=== PATIENT | female | born 1945 | race Caucasian/White ===

== ENCOUNTER 2017-01-08 14:59 | Emergency (ER) | payer MEDICARE, BC ==
[2017-01-08 15:24] LABS: URINE APPEARANCE SL CLOUDY; URINE BILIRUBIN NEGATIVE (NEGATIVE); URINE BLOOD TRACE-I (NEGATIVE); URINE COLOR YELLOW; URINE GLUCOSE (UA) NEGATIVE (NEGATIVE); URINE KETONE NEGATIVE (NEGATIVE); URINE LEUKOCYTE ESTERASE LARGE (NEGATIVE); URINE NITRITE POSITIVE (NEGATIVE); URINE PROTEIN NEGATIVE (NEGATIVE); URINE UROBILINOGEN 0.2 E.U./dL (0.20 - 1.00)
[2017-01-08 15:28] LABS: URINE BACTERIA 4+; URINE RBC 0 - 2 (NONE SEEN); URINE SQUAMOUS EPITHELIAL CELL 0 - 2 /hpf; URINE WBC >50 (0-2/hpf)
--- NOTE | 2017-01-08 15:33 | Emergency Department Record ---
History of Present Illness - General Chief complaint: Female Urogenital Problem Stated complaint: UTI? Time Seen by Provider: 01/08/17 15:28 Source: Patient Mode of Arrival: Ambulatory - History of Present Illness Initial comments: The patient has dysuria and burning on urination since last night. No f,c,n,v,d , ap. Complaint: Dysuria Onset/Timin -: Days(s) Severity: Mild Severity scale (1-10): 2 Quality: Burning Consistency: Intermittent Improves with: None Worsens with: Urination Patient : No Associated Symptoms: Denies other symptoms - Related Data Home Medications Medication Instructions Recorded Confirmed Last Taken Alprazolam [Alprazolam] 0.25 mg PO BID PRN 12/29/15 01/08/17 Unknown Aspirin Chewable 81 mg PO DAILY 12/29/15 01/08/17 01/08/17 Atorvastatin Calcium [Lipitor] 40 mg PO DAILY 12/29/15 01/08/17 12/29/15 Levothyroxine Sodium [Synthroid] 88 mcg PO DAILY 12/29/15 01/08/17 01/08/17 Memantine HCl [Namenda Xr] 1 tab PO DAILY 12/29/15 01/08/17 12/29/15 Valsartan/Hydrochlorothiazide 1 tab PO DAILY 12/29/15 01/08/17 12/29/15 [Valsartan-Hctz 160-12.5 mg Tab] Ascorbic Acid [Vitamin C] 500 mg PO DAILY 01/08/17 01/08/17 Unknown Cholecalciferol (Vitamin D3) 2,000 unit PO DAILY 01/08/17 01/08/17 Unknown [Vitamin D3] Donepezil HCl [Aricept] 5 mg PO QHS 01/08/17 01/08/17 Unknown Venlafaxine HCl [Effexor] 75 mg PO DAILY 01/08/17 01/08/17 Unknown Vitamin B Complex 1 each PO DAILY 01/08/17 01/08/17 Unknown Previous Rx's Medication Instructions Recorded Ciprofloxacin HCl [Cipro] 500 mg PO Q12H #20 tablet 01/08/17 Phenazopyridine HCl [Pyridium] 200 mg PO TID #6 tab 01/08/17 Allergies Allergy/AdvReac Type Severity Reaction Status Date / Time Penicillins Allergy HIVES Verified 01/08/17 15:10 Sulfa (Sulfonamide Allergy HIVES Verified 01/08/17 15:10 Antibiotics) Travel Screening - Travel/Exposure Within Last 30 Days Have you traveled within the last 30 days?: No Review of Systems Reviewed: No additional complaints except as noted below Constitutional: Reports: As per HPI. Denies: Chills, Fever, Malaise, Night sweats, Weakness, Weight change Eyes: Reports: As per HPI. Denies: Eye discharge, Eye pain, Photophobia, Vision change ENT: Reports: As per HPI. Denies: Congestion, Dental pain, Ear pain, Epistaxis , Hearing loss, Throat pain Respiratory: Reports: As per HPI. Denies: Cough, Dyspnea, Hemoptysis, Stridor, Wheezes Cardiovascular: Reports: As per HPI. Denies: Arrhythmia, Chest pain, Dyspnea on exertion, Edema, Murmurs, Orthopnea, Palpitations, Paroxysmal nocturnal dyspnea, Rheumatic Fever, Syncope Endocrine: Reports: As per HPI. Denies: Fatigue, Heat or cold intolerance, Polydipsia, Polyuria Gastrointestinal: Reports: As per HPI. Denies: Abdominal pain, Constipation, Diarrhea, Hematemesis, Hematochezia, Melena, Nausea, Vomiting Genitourinary: Reports: As per HPI. Denies: Abnormal menses, Discharge, Dyspareunia, Dysuria, Frequency, Hematuria, Incontinence, Retention, Urgency Musculoskeletal: Reports: As per HPI. Denies: Arthralgia, Back pain, Gout, Joint swelling, Myalgia, Neck pain Skin: Reports: As per HPI. Denies: Bruising, Change in color, Change in hair/ nails, Lesions, Pruritus, Rash Neurological: Reports: As per HPI. Denies: Abnormal gait, Confusion, Headache, Numbness, Paresthesias, Seizure, Tingling, Tremors, Vertigo, Weakness Psychiatric: Reports: As per HPI. Denies: Anxiety, Auditory hallucinations, Depression, Homicidal thoughts, Suicidal thoughts, Visual hallucinations Hematological/Lymphatic: Reports: As per HPI. Denies: Anemia, Blood Clots, Easy bleeding, Easy bruising, Swollen glands Past Medical History - SOCIAL HISTORY Smoking Status: Never smoker Alcohol Use: None Drug Use: None - RESPIRATORY Hx Respiratory Disorders: No - CARDIOVASCULAR Hx Cardio Disorders: Yes Hx Hypertension: Yes Comment:: high cholesterol; stress test-(neg) - NEURO Hx Neuro Disorders: Yes Hx Dementia: (memory loss) - GI Hx GI Disorders: Yes Hx Reflux: Yes - Hx Genitourinary Disorders: No - ENDOCRINE Hx Endocrine Disorders: Yes Hx Diabetes: Yes (diet controlled) Hx Thyroid Disease: Yes (hyper) Comment:: Graves disease; radiation-orally for thyroid - MUSCULOSKELETAL Hx Musculoskeletal Disorders: Yes Hx Arthritis: Yes - PSYCH Hx Psych Problems: Yes Hx Anxiety: Yes - HEMATOLOGY/ONCOLOGY Hx Hematology/Oncology Disorders: No Family Medical History Any Significant Family History?: Yes Family Hx Comment (NOT TO BE USED IN PLACE OF ITEMS BELOW): Mom w/thyroid issues Hx Diabetes: Father Hx Heart Disease: Father Physical Exam - General General Appearance: Alert, Oriented x3, Cooperative, No acute distress - Head Head exam: Normal inspection - Eye Eye exam: Normal appearance, PERRL Pupils: Normal accommodation - ENT ENT exam: Normal exam, Mucous membranes moist, Normal external ear exam, Normal orophraynx, TM's normal bilaterally Ear exam: Normal external inspection. negative: External canal tenderness Nasal Exam: Normal inspection. negative: Discharge, Sinus tenderness Mouth exam: Normal external inspection, Tongue normal Teeth exam: Normal inspection. negative: Dental caries Throat exam: Normal inspection. negative: Tonsillar erythema, Tonsillar exudate - Neck Neck exam: Normal inspection, Full ROM. negative: Tenderness - Respiratory Respiratory exam: Normal lung sounds bilaterally. negative: Respiratory distress - Cardiovascular Cardiovascular Exam: Regular rate, Normal rhythm, Normal heart sounds - GI/Abdominal GI/Abdominal exam: Soft, Normal bowel sounds. negative: Tenderness - Rectal Rectal exam: Deferred - exam: Deferred - Extremities Extremities exam: Normal inspection, Full ROM, Normal capillary refill. negative: Tenderness - Back Back exam: Reports: Normal inspection, Full ROM, Other (diffuse mild soreness over entire lumbar back). Denies: Muscle spasm, Rash noted, Tenderness - Neurological Neurological exam: Alert, Normal gait, Oriented X3, Reflexes normal - Psychiatric Psychiatric exam: Normal affect, Normal mood - Skin Skin exam: Dry, Intact, Normal color, Warm Course Vital Signs 01/08/17 15:06 Temperature 98.3 F Pulse Rate 92 H Respiratory 16 Rate Blood Pressure 130/80 Pulse Ox 98 Medical Decision Making - Management Options MDM Management: No Additional Work-up Planned - Data Complexity MDM Data: Labs Ordered and/or Reviewed - Lab Data Lab Results 01/08/17 Range/Units 15:18 Urine Color Yellow Urine Appearance Sl cloudy Urine pH 6.0 (5.0-8.0) Ur Specific G[place]y 1.010 (1.002-1.030) Urine Protein Negative (NEGATIVE) Urine Glucose (UA) Negative (NEGATIVE) Urine Ketones Negative (NEGATIVE) Urine Blood Trace-i (NEGATIVE) Urine Nitrite Positive H (NEGATIVE) Urine Bilirubin Negative (NEGATIVE) Urine Urobilinogen 0.2 (0.20 - 1.00) E.U./dL Ur Leukocyte Esterase Large H (NEGATIVE) Disposition Disposition: Discharge Clinical Impression: UTI (urinary tract infection) Qualifiers: Urinary tract infection type: acute cystitis Hematuria presence: without hematuria Qualified Code(s): N30.00 - Acute cystitis without hematuria Disposition: Home, Self-Care Condition: (1) Good Instructions: Urinary Tract Infection in Women (ED) Additional Instructions: cipro as directed until gone. Pyridium as directed for 2 days then stop. Prescriptions: Ciprofloxacin HCl [Cipro] 500 mg PO Q12H #20 tablet Phenazopyridine HCl [Pyridium] 200 mg PO TID #6 tab Forms: Patient Portal Access
== END 2017-01-08 15:55 | disposition home or self-care (01) ==
LOC: ER 14:59
DX: N39.0 Urinary tract infection, site not specified (principal)
CPT/HCPCS: 81001; 99283

== ENCOUNTER 2018-07-30 10:09 | Emergency (ER) | payer MEDICARE ==
[2018-07-30] MEDS ORDERED: 0.9 % SODIUM CHLORIDE 1,000 ML BAG IV ONE (10:22)
--- NOTE | 2018-07-30 10:28 | Emergency Department Record ---
History of Present Illness - General Chief complaint: Nausea, Vomiting, Diarrhea Stated complaint: NOT EATING/NOT DRINKING/DIZZY Time Seen by Provider: 07/30/18 10:20 Source: Patient Mode of Arrival: Ambulatory Limitations: No limitations - History of Present Illness Initial comments: 72 yo female presents with decreased appetite. This has been ongoing for about 3 weeks. She weighed 176 lbs on 07/06/18. She is 164 lbs today. She simply states she is not hungry. There is no report of vomiting, choking, diarrhea, change in stools. She is not in pain. As time goes by she does have some lightheadedness with standing and she feels weak. No syncope. She has a history of dementia. No history of abnormal colonoscopy per family. No changes in mental status. Dr Kowalski is her doctor at [facility]. Her daughter estimates about 300 calories consumed per day. She is drinking fluids but at a reduced amount. The patient denies any complaints. She states she is not hungry. She jokes that she must just be a "stubborn old lady". She denies nausea, pain, or any specific complaint. Dr Jung is her psychiatrist. complaint: Nausea, Other (Not eating) Onset/Timin -: Week(s) Description of Vomiting: Other (None) Description of Diarrhea: Other (None) Severity: Moderate Consistency: Constant Improves with: None Worsens with: None Associated Symptoms: Denies other symptoms - Related Data Home Medications Medication Instructions Recorded Confirmed Last Taken Memantine HCl [Memantine HCl ER] 28 mg PO DAILY 07/30/18 07/30/18 07/30/18 Metformin HCl 500 mg PO BID 07/30/18 07/30/18 07/30/18 Allergies Allergy/AdvReac Type Severity Reaction Status Date / Time Penicillins Allergy HIVES Verified 07/30/18 10:22 Sulfa (Sulfonamide Allergy HIVES Verified 07/30/18 10:22 Antibiotics) Travel Screening - Travel/Exposure Within Last 30 Days Have you traveled within the last 30 days?: No - Travel/Exposure Within Last Year Have you traveled outside the [place] in the last year?: No - Additonal Travel Details Have you been exposed to anyone with a communicable illness?: No - Travel Symptoms Symptom Screening: None Review of Systems Constitutional: Reports: Weakness. Denies: Chills, Fever, Malaise Eyes: Denies: Eye discharge, Eye pain, Vision change ENT: Denies: Congestion, Throat pain Respiratory: Denies: Cough, Dyspnea Cardiovascular: Denies: Chest pain, Syncope Endocrine: Reports: Fatigue Gastrointestinal: Denies: Abdominal pain, Constipation, Diarrhea, Hematemesis, Hematochezia, Melena, Nausea, Vomiting Genitourinary: Denies: Dysuria, Urgency Musculoskeletal: Denies: Arthralgia, Back pain, Joint swelling, Myalgia Skin: Denies: Bruising, Change in color, Rash Neurological: Reports: Confusion (dementia). Denies: Abnormal gait, Headache, Numbness, Seizure, Tingling, Tremors, Vertigo Psychiatric: Denies: Anxiety Hematological/Lymphatic: Denies: Easy bleeding, Easy bruising, Swollen glands Past Medical History - SOCIAL HISTORY Smoking Status: Never smoker Alcohol Use: None Drug Use: None - RESPIRATORY Hx Respiratory Disorders: No - CARDIOVASCULAR Hx Cardio Disorders: Yes Hx Hypertension: Yes Comment:: high cholesterol; stress test-(neg) - NEURO Hx Neuro Disorders: Yes Hx Dementia: (memory loss) - GI Hx GI Disorders: Yes Hx Reflux: Yes - Hx Genitourinary Disorders: No - ENDOCRINE Hx Endocrine Disorders: Yes Hx Diabetes: Yes (diet controlled) Hx Thyroid Disease: Yes (hyper) Comment:: Graves disease; radiation-orally for thyroid - MUSCULOSKELETAL Hx Musculoskeletal Disorders: Yes Hx Arthritis: Yes - PSYCH Hx Psych Problems: Yes Hx Anxiety: Yes - HEMATOLOGY/ONCOLOGY Hx Hematology/Oncology Disorders: No Family Medical History Any Significant Family History?: Yes Family Hx Comment (NOT TO BE USED IN PLACE OF ITEMS BELOW): Mom w/thyroid issues Hx Diabetes: Father Hx Heart Disease: Father Physical Exam - General General Appearance: Alert, Cooperative, No acute distress, Other (Alert, conversational, pleasant) Limitations: No limitations - Head Head exam: Atraumatic, Normal inspection - Eye Eye exam: Normal appearance. negative: Conjunctival injection, Scleral icterus - ENT ENT exam: Normal exam, Mucous membranes moist, Normal orophraynx Ear exam: Normal external inspection Nasal Exam: Normal inspection Mouth exam: Normal external inspection Throat exam: Normal inspection - Neck Neck exam: Normal inspection, Full ROM. negative: Tenderness, Thyromegaly - Respiratory Respiratory exam: Normal lung sounds bilaterally. negative: Respiratory distress, Rhonchi, Stridor, Wheezes - Cardiovascular Cardiovascular Exam: Regular rate, Normal rhythm, Normal heart sounds - GI/Abdominal GI/Abdominal exam: Soft, Normal bowel sounds. negative: Tenderness - Rectal Rectal exam: Deferred - exam: Deferred - Extremities Extremities exam: Normal inspection. negative: Pedal edema - Back Back exam: Denies: CVA tenderness (R), CVA tenderness (L) - Neurological Neurological exam: Alert, Normal gait. negative: Altered (At baseline), CN II- XII intact, Motor sensory deficit - Psychiatric Psychiatric exam: Normal affect, Normal mood. negative: Agitated, Anxious, Depressed - Skin Skin exam: Dry, Intact, Normal color, Warm Course Vital Signs 07/30/18 10:15 Temperature 97.4 F L Pulse Rate 88 Respiratory 16 Rate Blood Pressure 119/73 Pulse Ox 99 - Reevaluation(s) Reevaluation #1: 07/30/18 10:41 The orthostatic vitals are consistent with a component of orthostatic hypotension 07/30/18 10:49 The CBC was reviewed. No significant abnormality. 07/30/18 11:15 The CMP was reviewed. The BUN is 91 The CR is 3.0 The AG is 19 The HCO3 21 Glucose 103 LFT's are normal Albumin 4.6 K is 4.6 07/30/18 11:24 The HCT is negative The patient was given water. She is able to swallow without choking Given her acute renal failure I recommend transfer to her PCP at [facility] in [place] 07/30/18 11:25 TSH is 0.5 07/30/18 11:26 EMR reviewed. Prior renal function normal historically. 07/30/18 11:29 The daughter [place] [facility] [place] [facility] aerotriangulation specialist will be contacted. Medical Decision Making - Lab Data Result diagrams: 07/30/18 10:35 07/30/18 10:35 Disposition Disposition: Transfer Clinical Impression: Dehydration, Anorexia Acute renal failure Qualifiers: Acute renal failure type: unspecified Qualified Code(s): N17.9 - Acute kidney failure, unspecified Disposition: Acute Care Hospital Transfer [place] [facility] [place] Transfer: Acute renal failure Accepting Physician: Jose Roberto Time Discussed w/Accepting Physician: 11:30 Condition: (2) Stable Forms: Patient Portal Access Time of Disposition: 11:30 Quality - Quality Measures Quality Measures: N/A - Blood Pressure Screening Does Patient Have Any of the Following: No Blood Pressure Classification: Pre-Hypertensive BP Reading Systolic Measurement: 121 Diastolic Measurement: 57 Screening for High Blood Pressure: < Pre-Hypertensive BP, F/U Documented > [ G8950] Pre-Hypertensive Follow-up Interventions: Referral to alternative/primary care provider.
[2018-07-30 10:47] LABS: BASO % 0.5 % (0-6); EOS % 2.9 % (0-6); GRAN % 65.8 % (47-80); HEMATOCRIT 39.3 % (35.0-47.0); LYMPH % 22.4 % (16-45); MEAN CORPUSCULAR HEMOGLOBIN 30.4 pg (27-33); MEAN CORPUSCULAR HGB CONC 33.1 g/dl (32-36); MEAN PLATELET VOLUME 11.4 fl (7.4-10.4); MONO % 8.4 % (0-9); PLATELET COUNT 334 K/uL (130-400); RED BLOOD COUNT 4.27 M/uL (3.80-5.40); RED CELL DISTRIBUTION WIDTH 13.3 % (11.5-14.5); WHITE BLOOD COUNT W/O DIFF 7.7 K/uL (4.2-12.2)
[2018-07-30 10:58] LABS: BILIRUBIN,TOTAL 0.7 mg/dL (0.2-1.0); TOTAL PROTEIN 7.9 g/dL (6.6-8.7)
[2018-07-30 11:03] LABS: ALB/GLOB RATIO 1.4 (1.1-1.8); ALBUMIN 4.6 g/dL (4.0-5.0)
[2018-07-30 11:15] LABS: THYROID STIMULATING HORMONE 0.5 uIU/mL (0.270-4.20)
[2018-07-30] MEDS ORDERED: 0.9 % SODIUM CHLORIDE 1000ML 1,000 ML IV ONE (11:16)
[2018-07-30 12:56] LABS: URINE BILIRUBIN NEGATIVE (NEGATIVE); URINE BLOOD NEGATIVE (NEGATIVE); URINE COLOR YELLOW; URINE GLUCOSE (UA) NEGATIVE (NEGATIVE); URINE KETONE TRACE (NEGATIVE); URINE LEUKOCYTE ESTERASE SMALL (NEGATIVE); URINE NITRITE NEGATIVE (NEGATIVE); URINE PROTEIN NEGATIVE (NEGATIVE); URINE UROBILINOGEN 0.2 E.U./dL (0.20 - 1.00)
[2018-07-30 13:05] LABS: URINE APPEARANCE SL CLOUDY
[2018-07-30 13:06] LABS: URINE BACTERIA FEW; URINE RBC 0 - 2 (NONE SEEN); URINE RENAL EPITHELIAL CELLS 0 - 2 /hpf; URINE SQUAMOUS EPITHELIAL CELL 0 - 2 /hpf
[2018-07-30 13:07] LABS: URINE WHITE BLOOD CELL CAST 0 - 2 /lpf
--- NOTE | 2018-08-02 10:04 | CT SCAN REPORT ---
EXAM: CT SCAN HEAD WO CONTRAST HISTORY: DIZZINESS. NOT EATING OR DRINKING. TECHNIQUE: Standard CT imaging of the brain was performed in the axial plane without contrast. Additional coronal and sagittal reformatted images were also performed. COMPARISON: None. FINDINGS: The ventricles and subarachnoid spaces are normal. The brain parenchyma is also normal for the patient's age. There is no mass, mass effect, intracranial hemorrhage, visible acute infarct, or abnormal extraaxial fluid. The skull is intact. The orbits, sinuses, and mastoids are normal. IMPRESSION: NO ACUTE INTRACRANIAL ABNORMALITY. JOB NUMBER: [id number] MTDD
== END 2018-07-30 12:53 | disposition short-term general hospital (02) ==
LOC: ER 10:09
DX: N17.9 Acute kidney failure, unspecified (principal); E86.0 Dehydration; R63.0 Anorexia; R11.2 Nausea with vomiting, unspecified; R42 Dizziness and giddiness; R19.7 Diarrhea, unspecified; I10 Essential (primary) hypertension
CPT/HCPCS: 70450; 80053; 81001; 83735; 84443; 85025; 99285; J7030

== ENCOUNTER 2019-05-18 15:55 | Inpatient (IN) | payer MEDICARE ==
[2019-05-18] MEDS ORDERED: 0.9 % SODIUM CHLORIDE 1,000 ML BAG IV ONE (16:10)
--- NOTE | 2019-05-18 16:18 | Emergency Department Record ---
History of Present Illness - General Chief complaint: Dehydration Stated complaint: DEHYDRATED Time Seen by Provider: 05/18/19 16:07 Source: Patient Mode of Arrival: Ambulatory Limitations: No limitations - History of Present Illness Initial comments: The patient is here due to generalized weakness for 5 weeks. She has a hx of dementia and has not been eating or drinking well for 5 weeks. Per her she has lost 14 lbs. The patient did have some lab work done by her PCP this week and today they received a call that her kidneys may not be working normally. The patient denies any head or neck pain, CP, SOB, AP or back pain. There has been no reported nausea, vomiting, diarrhea or fevers. MD Complaint: Generalized weakness Onset/Timin -: Week(s) Location: Generalized Consistency: Constant Improves with: None Worsens with: None Associated Symptoms: Loss of appetite - Related Data Home Medications Medication Instructions Recorded Confirmed Last Taken Valsartan 160 mg PO DAILY 05/18/19 05/18/19 Unknown Allergies Allergy/AdvReac Type Severity Reaction Status Date / Time Penicillins Allergy HIVES Verified 05/18/19 17:34 Sulfa (Sulfonamide Allergy HIVES Verified 05/18/19 17:34 Antibiotics) Travel Screening - Travel/Exposure Within Last 30 Days Have you traveled within the last 30 days?: No Review of Systems Constitutional: Denies: Chills, Fever Eyes: Denies: Eye discharge ENT: Denies: Congestion Respiratory: Denies: Cough, Dyspnea Cardiovascular: Denies: Chest pain Endocrine: Reports: Fatigue Gastrointestinal: Denies: Nausea Genitourinary: Denies: Dysuria Musculoskeletal: Denies: Arthralgia Neurological: Reports: Confusion (chronic.). Denies: Abnormal gait Past Medical History - SOCIAL HISTORY Smoking Status: Never smoker - RESPIRATORY Hx Respiratory Disorders: No - CARDIOVASCULAR Hx Cardio Disorders: Yes Hx Hypertension: Yes Comment:: high cholesterol; stress test-(neg) - NEURO Hx Neuro Disorders: Yes Hx Dementia: (memory loss) - GI Hx GI Disorders: Yes Hx Reflux: Yes - Hx Genitourinary Disorders: No - ENDOCRINE Hx Endocrine Disorders: Yes Hx Diabetes: Yes (diet controlled) Hx Thyroid Disease: Yes (hyper) Comment:: Graves disease; radiation-orally for thyroid - MUSCULOSKELETAL Hx Musculoskeletal Disorders: Yes Hx Arthritis: Yes - PSYCH Hx Psych Problems: Yes Hx Anxiety: Yes - HEMATOLOGY/ONCOLOGY Hx Hematology/Oncology Disorders: No Family Medical History Any Significant Family History?: Yes Family Hx Comment (NOT TO BE USED IN PLACE OF ITEMS BELOW): Mom w/thyroid issues Hx Diabetes: Father Hx Heart Disease: Father Physical Exam - General General Appearance: Alert, Cooperative, No acute distress - Head Head exam: Atraumatic, Normocephalic - Eye Eye exam: Normal appearance, PERRL - ENT Throat exam: Normal inspection. negative: Tonsillar erythema, Tonsillar exudate - Neck Neck exam: Normal inspection, Full ROM. negative: Tenderness - Respiratory Respiratory exam: Normal lung sounds bilaterally. negative: Respiratory distress - Cardiovascular Cardiovascular Exam: Regular rate, Normal rhythm, Normal heart sounds. negative: Diastolic murmur, Systolic murmur - GI/Abdominal GI/Abdominal exam: Soft, Normal bowel sounds. negative: Tenderness - Extremities Extremities exam: Normal inspection, Full ROM, Normal capillary refill. negative: Tenderness - Back Back exam: Reports: Normal inspection - Neurological Neurological exam: Alert, Normal gait. negative: Abnormal gait, Motor sensory deficit, Oriented X3 (The patient is oriented to name, bday, and place but not age, day or year. She is presently at her baseline per family.) - Psychiatric Psychiatric exam: negative: Agitated, Anxious, Depressed Course Vital Signs 05/18/19 15:59 Temperature 97.8 F Pulse Rate 79 Respiratory 20 Rate Blood Pressure 133/78 Pulse Ox 98 - Reevaluation(s) Reevaluation #1: The patient is doing very well at this time and clearly is back in renal failure. She denies any pain or any issues and is at her baseline for dementia. The patient had the same issues in Jul and she was admitted to the hospital for 2 days and hydrated. The family would like to stay here for her admission this time so I did discuss the case with Ashley and she does accept the admission for Dr. Valdivia. 05/18/19 16:53 Reevaluation #2: The patient also clearly has a UTI. She is allergic to Sulfa and possibly PCN. The family is not sure what the PCN allergy is or if she really is actually conner rgic. I did recommend Keflex orally and did explain the very small chance of cross reactivity and the family does agree to it. 05/18/19 17:13 Medical Decision Making - Data Complexity MDM Data: Labs Ordered and/or Reviewed, EKG Ordered and/or Reviewed - Lab Data Result diagrams: 05/18/19 16:15 05/19/19 05:55 - EKG Data -: EKG Interpreted by Me EKG: No Acute Changes (Flipped T waves V1-2, O/W neg.) Disposition Disposition: Admit Clinical Impression: Renal failure (ARF), acute on chronic Qualifiers: Acute renal failure type: unspecified Chronic kidney disease stage: unspecified stage Qualified Code(s): N17.9 - Acute kidney failure, unspecified Disposition: Still a Patient at [facility] Decision to Admit: Admit from ER Decision to Admit Date: 05/18/19 Decision to Admit Time: 16:56 Accepting Physician: Shea Mehta Discussed w/Accepting Physician: 16:56 Condition: (2) Stable Time of Disposition: 16:56 Quality - Quality Measures Quality Measures: N/A - Blood Pressure Screening View Details: Yes Does Patient Have Any of the Following: No Blood Pressure Classification: Pre-Hypertensive BP Reading Systolic Measurement: 133 Diastolic Measurement: 78 Screening for High Blood Pressure: < Pre-Hypertensive BP, F/U Documented > [G8950] Pre-Hypertensive Follow-up Interventions: Referral to alternative/primary care provider.
[2019-05-18 16:27] LABS: ABSOLUTE NEUTROPHIL COUNT 7.03; BASO % 0.4 % (0-6); EOS % 0.8 % (0-6); GRAN % 75.4 % (47-80); HEMATOCRIT 40.1 % (35.0-47.0); HEMOGLOBIN 13.1 gm/dl (11.6-16.0); LYMPH % 18.2 % (16-45); MEAN CELL VOLUME 92.2 fl (81-97); MEAN CORPUSCULAR HEMOGLOBIN 30.1 pg (27-33); MEAN CORPUSCULAR HGB CONC 32.7 g/dl (32-36); MEAN PLATELET VOLUME 11.2 fl (7.4-10.4); MONO % 5.2 % (0-9); PLATELET COUNT 330 K/uL (130-400); RED BLOOD COUNT 4.35 M/uL (3.80-5.40); WHITE BLOOD COUNT W/O DIFF 9.3 K/uL (4.2-12.2)
[2019-05-18 16:37] LABS: BILIRUBIN,TOTAL 0.6 mg/dL (0.2-1.0); CREATININE 3.2 mg/dL (0.5-0.9)
[2019-05-18 16:38] LABS: TOTAL PROTEIN 7.8 g/dL (6.6-8.7)
[2019-05-18 16:43] LABS: ALB/GLOB RATIO 1.8 (1.1-1.8)
[2019-05-18 16:51] LABS: URINE APPEARANCE CLEAR; URINE BILIRUBIN NEGATIVE (NEGATIVE); URINE BLOOD TRACE-I (NEGATIVE); URINE COLOR YELLOW; URINE GLUCOSE (UA) NEGATIVE (NEGATIVE); URINE KETONE NEGATIVE (NEGATIVE); URINE LEUKOCYTE ESTERASE MODERATE (NEGATIVE); URINE NITRITE POSITIVE (NEGATIVE); URINE PROTEIN NEGATIVE (NEGATIVE); URINE UROBILINOGEN 0.2 E.U./dL (0.20 - 1.00)
[2019-05-18] MEDS ORDERED: 0.9 % SODIUM CHLORIDE 1000ML 1,000 ML IV ONE ×2 (16:56→19:06)
[2019-05-18 17:07] LABS: URINE BACTERIA 3+; URINE RBC 0 - 2 (NONE SEEN); URINE WBC 21 - 35 (0-2/hpf)
[2019-05-18] MEDS ORDERED: CEPHALEXIN 500 MG CAPSULE PO STA (17:11)
[2019-05-18] MEDS ORDERED: ALPRAZOLAM 0.25 MG TABLET PO PRN (19:06)
[2019-05-18] MEDS ORDERED: ACETAMINOPHEN 325 MG TAB PO PRN (19:06)
[2019-05-18] MEDS: CEPHALEXIN 500 MG CAPSULE PO SCH (19:44)
[2019-05-18] MEDS: DONEPEZIL HCL 5 MG TABLET PO SCH (21:13)
[2019-05-18] MEDS: ATORVASTATIN 20 MG TABLET PO SCH (21:14)
[2019-05-18] MEDS ORDERED: MEMANTINE HCL 10 MG TABLET PO SCH (22:15)
[2019-05-19] MEDS: CEPHALEXIN 500 MG CAPSULE PO SCH ×3 (02:30→10:40)
[2019-05-19] MEDS ORDERED: LEVOTHYROXINE SODIUM 100 MCG TABLET PO SCH (06:00)
[2019-05-19] MEDS: LEVOTHYROXINE SODIUM 88 MCG TABLET PO SCH (06:10)
[2019-05-19 06:51] LABS: CREATININE 2.2 mg/dL (0.5-0.9)
[2019-05-19] MEDS: VALSARTAN 80 MG TAB PO SCH (09:46)
[2019-05-19] MEDS: MEMANTINE 28 MG PO SCH (09:46)
[2019-05-19] MEDS: VENLAFAXINE ER 75 MG CAPSULE PO SCH (09:46)
[2019-05-19] MEDS: ASPIRIN 81 MG CHEWABLE TABLET PO SCH (09:46)
--- NOTE | 2019-05-19 11:39 | History & Physical ---
History of Present Illness - Date of Service Date of Service for History & Physical: 05/19/19 - History of Present Illness Admitting Diagnosis: 1. Acute Renal Failure History of Present Illness: Maria Isabel Keith is a 73 y.o. F who was brought to the [facility] ED at the direction of her PCP after having some lab work done earlier in the week which indicated KADEEM. Pt has hx of generalized weakness and not eating or drinking x 5 weeks. Spouse reported a weight loss of approximately 14 labs. Hx of Dementia for which she takes Aricept and Namenda. Similar episode of not eating or drinking in July 2018. PMHx: HTN, Demenia, GERD, DM II, Graves dx, OA, Anxiety. PCP: Dr. Monie Kowalski Psychiatrist: Dr. Cortés ED Course -Vitals: T 97.8, HR 79, BP 133/78, RR 20, SpO2 98% on RA -U/A: +Nitrites, Moderate Leuks. Started on Keflex in ED -EKG: No acute changes -K+ 5.1, BUN 94, Creat 3.2, GFR 15, Ca 10.5 05/19/19 1100 Vitals: T 98.2, HR 66, BP 121/68, RR 16, SpO2 97% on RA Pt sitting up in bed, alert and pleasant. Daughter, son and at bedside. Discussed improved kidney function, but not yet back to baseline. Discussed + UTI and medication allergies. Pt denied having an N/V/D, flank pain, pelvic pain or burning with urination. Pt's spouse stated that she saw her PCP 4 days ago and prior to that, had not seen her for approximately 5 weeks. Shortly after seeing her PCP, pt stopped eating and drinking very much. Pt is still able to feed self and do most of her ADLs. Travel Screening - Travel/Exposure Within Last 30 Days Have you traveled within the last 30 days?: No Location Detail:: [place] - Travel/Exposure Within Last Year Have you traveled outside the [place] in the last year?: No - Additonal Travel Details Have you been exposed to anyone with a communicable illness?: No - Travel Symptoms Symptom Screening: Weakness, Fatigue, Lack of Appetite Review of Systems Reviewed: No additional complaints except as noted below Constitutional: Reports: Weakness. Denies: Chills, Fever Eyes: Denies: Eye discharge ENT: Denies: Congestion Respiratory: Denies: Cough, Dyspnea Cardiovascular: Denies: Chest pain Endocrine: Reports: Fatigue Gastrointestinal: Denies: Nausea Genitourinary: Denies: Dysuria, Hematuria, Incontinence, Retention, Urgency Musculoskeletal: Denies: Arthralgia Neurological: Reports: Confusion (chronic.). Denies: Abnormal gait Psychiatric: Reports: Anxiety. Denies: Depression Past Medical History - SOCIAL HISTORY Smoking Status: Never smoker - RESPIRATORY Hx Respiratory Disorders: No - CARDIOVASCULAR Hx Cardio Disorders: Yes Hx Hypertension: Yes Comment:: high cholesterol; stress test-(neg) - NEURO Hx Neuro Disorders: Yes Hx Dementia: (memory loss) - GI Hx GI Disorders: Yes Hx Reflux: Yes - Hx Genitourinary Disorders: No - ENDOCRINE Hx Endocrine Disorders: Yes Hx Diabetes: Yes (diet controlled) Hx Thyroid Disease: Yes (hyper) Comment:: Graves disease; radiation-orally for thyroid - MUSCULOSKELETAL Hx Musculoskeletal Disorders: Yes Hx Arthritis: Yes - PSYCH Hx Psych Problems: Yes Hx Anxiety: Yes - HEMATOLOGY/ONCOLOGY Hx Hematology/Oncology Disorders: No Family Medical History Any Significant Family History?: Yes Family Hx Comment (NOT TO BE USED IN PLACE OF ITEMS BELOW): Mom w/thyroid issues Hx Diabetes: Father Hx Heart Disease: Father H&P Meds/Allergies - Allergies Allergies: Allergies Allergy/AdvReac Type Severity Reaction Status Date / Time Penicillins Allergy HIVES Verified 05/18/19 17:34 Sulfa (Sulfonamide Allergy HIVES Verified 05/18/19 17:34 Antibiotics) - Home Medications Home Medications Medication Instructions Recorded Confirmed Last Taken Valsartan 160 mg PO DAILY 05/18/19 05/18/19 Unknown - Active Medications Active Medications: Current Medications Acetaminophen (Tylenol 325mg) 650 mg PO Q6H PRN PRN Reason: PAIN - MILD(1-4)/FEVER Last Admin: 05/19/19 02:30 Dose: 650 mg Documented by: Alprazolam (Xanax) 0.25 mg PO BID PRN PRN Reason: ANXIETY Aspirin (Aspirin Chewable) 81 mg PO DAILY [facility] Last Admin: 05/19/19 09:46 Dose: 81 mg Documented by: Atorvastatin Calcium (Lipitor) 40 mg PO QHS [facility] Last Admin: 05/18/19 21:14 Dose: 40 mg Documented by: Ciprofloxacin (Cipro) 250 mg PO Q12H [facility] Donepezil HCl (Aricept) 10 mg PO QHS [facility] Last Admin: 05/18/19 21:13 Dose: 10 mg Documented by: Sodium Chloride () 1,000 mls @ 100 mls/hr IV .Q10H PRN PRN Reason: LARGE VOLUME IV Levothyroxine Sodium (Synthroid) 88 mcg PO DAILYTHY [facility] Last Admin: 05/19/19 06:10 Dose: 88 mcg Documented by: Patient Own Med: (Memantine Er 28 Mg) 1 each PO DAILY [facility] Last Admin: 05/19/19 09:46 Dose: 1 each Documented by: Valsartan (Diovan) 160 mg PO DAILY [facility] Last Admin: 05/19/19 09:46 Dose: 160 mg Documented by: Venlafaxine HCl (Effexor Xr) 75 mg PO DAILY [facility] Last Admin: 05/19/19 09:46 Dose: 75 mg Documented by: Physical Exam - Vital Signs Vital Signs: Vital Signs - Last 24 Hrs Temp Pulse Pulse Pulse Resp BP BP 05/19/19 09:00 98.2 F 66 16 121/68 05/19/19 06:00 97.8 F 67 16 114/57 05/18/19 21:06 97.4 F L 71 16 133/69 05/18/19 21:00 68 16 05/18/19 19:05 97.3 F L 79 16 164/72 05/18/19 18:32 78 18 124/42 05/18/19 15:59 97.8 F 79 20 133/78 Pulse Ox 05/19/19 09:00 97 05/19/19 06:00 98 05/18/19 21:06 99 05/18/19 21:00 05/18/19 19:05 99 05/18/19 18:32 100 05/18/19 15:59 98 - General General Appearance: Alert, Cooperative, No acute distress Limitations: No limitations - Head Head exam: Atraumatic, Normocephalic - Eye Eye exam: Normal appearance, PERRL - ENT Throat exam: Normal inspection. negative: Tonsillar erythema, Tonsillar exudate - Neck Neck exam: Normal inspection, Full ROM. negative: Tenderness - Respiratory Respiratory exam: Normal lung sounds bilaterally. negative: Respiratory distress - Cardiovascular Cardiovascular Exam: Regular rate, Normal rhythm, Normal heart sounds. negative: Diastolic murmur, Systolic murmur - GI/Abdominal GI/Abdominal exam: Soft, Normal bowel sounds. negative: Tenderness - Extremities Extremities exam: Normal inspection, Full ROM, Normal capillary refill. negative: Tenderness - Back Back exam: Reports: Normal inspection - Neurological Neurological exam: Alert, CN II-XII intact, Normal gait. negative: Abnormal gait, Motor sensory deficit, Oriented X3 (The patient is oriented to name, bday, and place but not age, day or year. She is presently at her baseline per family.) - Psychiatric Psychiatric exam: Normal affect. negative: Agitated, Anxious, Depressed - Skin Skin exam: Dry, Intact, Warm Results - Labs Result Diagrams: 05/18/19 16:15 05/19/19 05:55 Labs Last 24 Hours: Laboratory Results - last 24 hr 05/18/19 05/18/19 05/18/19 16:15 16:15 16:46 WBC 9.3 RBC 4.35 Hgb 13.1 Hct 40.1 MCV 92.2 MCH 30.1 MCHC 32.7 RDW 13.0 Plt Count 330 MPV 11.2 H Gran % 75.4 Lymphocytes % 18.2 Monocytes % 5.2 Eosinophils % 0.8 Basophils % 0.4 Absolute Neutrophils 7.03 Sodium 134 L Potassium 5.1 H Chloride 94 L Carbon Dioxide 21.0 L Anion Gap 19.0 H BUN 94 H Creatinine 3.2 H Estimated GFR 15 Random Glucose 97 Calcium 10.5 H Total Bilirubin 0.60 AST 24 ALT 18 Alkaline Phosphatase 77 Total Protein 7.8 Albumin 5.0 Globulin 2.8 Albumin/Globulin Ratio 1.8 Urine Color Yellow Urine Appearance Clear Urine pH 5.5 Ur Specific Mcdonald 1.020 Urine Protein Negative Urine Glucose (UA) Negative Urine Ketones Negative Urine Blood Trace-i Urine Nitrite Positive H Urine Bilirubin Negative Urine Urobilinogen 0.2 Ur Leukocyte Esterase Moderate H Urine RBC 0 - 2 Urine WBC 21 - 35 Ur Epithelial Cells 3 - 6 Urine Bacteria 3+ 05/19/19 05:55 WBC RBC Hgb Hct MCV MCH MCHC RDW Plt Count MPV Gran % Lymphocytes % Monocytes % Eosinophils % Basophils % Absolute Neutrophils Sodium 138 Potassium 4.6 H Chloride 103 Carbon Dioxide 23.0 Anion Gap 12.0 BUN 76 H Creatinine 2.2 H Estimated GFR 23 Random Glucose 98 Calcium 9.8 Total Bilirubin AST ALT Alkaline Phosphatase Total Protein Albumin Globulin Albumin/Globulin Ratio Urine Color Urine Appearance Urine pH Ur Specific Mcdonald Urine Protein Urine Glucose (UA) Urine Ketones Urine Blood Urine Nitrite Urine Bilirubin Urine Urobilinogen Ur Leukocyte Esterase Urine RBC Urine WBC Ur Epithelial Cells Urine Bacteria VTE H&P Assessment - Risk for VTE Risk for VTE: Yes Risk Level: High Risk Assessment Date: 05/19/19 Risk Assessment Time: 11:00 VTE Orders Placed or Will Be Placed: Yes Plan - Inpatient Certification Inpatient Certification: Admit to inpatient care: Based on my medical assessment, after consideration of patient's risk factors (age, co-morbidities and patient presenting symptoms and acuity), I expect that this patient will remain in the hospital greater than or equal to two midnights and that the services needed warrant inpatient care because: Patient Risk Factors: [age, co-morbitities] Estimated length of stay: [48 hours] The patient may reasonably be expected to be discharged or transferred to a hospital within 96 hours after admission to [facility]. Services needed: [IV fluids, Telemetry monitoring, Lab monitoring] Post hospital care (if known): [home with spouse] I certify that my determination is in accordance with my understanding of Medicare requirements for reasonable and necessary inpatient services. 05/19/19 14:22 - Detailed Diagnosis and Plan (1) Dehydration Current Visit: Yes Status: Acute Base Code: E86.0 - DEHYDRATION Comment: 05/19/19 -Has had decreased fluid and food intake x 5 weeks -BUN 94 --> 76, Creatinine 3.2 --> 2.2, GFR 15 --> 23 -1 L N.S. Bolus x 2 -Start NS @ 100ml/hr -Will recheck BMP in a.m. (2) KADEEM (acute kidney injury) Current Visit: Yes Status: Acute Base Code: N17.9 - ACUTE KIDNEY FAILURE, UNSPECIFIED Comment: 05/19/19 -Improving -BUN 94 --> 76, Creatinine 3.2 --> 2.2, GFR 15 --> 23 -Baseline Creatinine 1.0, GFR 58-60 -NS bolus x 2 overnight -NS @ 100ml/hr (3) Dementia Current Visit: Yes Status: Acute Base Code: F03.90 - UNSPECIFIED DEMENTIA WITHOUT BEHAVIORAL DISTURBANCE Comment: 05/19/19 -Continue home meds Aricept 10mg q. HS and Namenda 28mg daily -Pt at baseline mentation per family -Nursing to provide increased supervision for safety (bed alarm, close to nurses station, etc) (4) Urinary tract infection Current Visit: Yes Status: Acute Base Code: N39.0 - URINARY TRACT INFECTION, SITE NOT SPECIFIED Comment: 05/19/19 -U/A in ED: +Nitrites and moderate leuks -C&S pending -was started on Keflex in ED d/t sulfa and PCN allergies -Will stop keflex and change to Cipro -Current creatinine clearance 28 -Start Cipro 250mg PO BID (5) DVT prophylaxis Current Visit: Yes Status: Acute Base Code: Z29.9 - ENCOUNTER FOR PROPHYLACTIC MEASURES, UNSPECIFIED Comment: 05/19/19 -High risk d/t age -Pt ambulatory, nursing to encourage ambulation -SCDs ordered while in bed -No lovenox @ this time d/t KADEEM (6) Full code status Current Visit: Yes Status: Acute Base Code: Z78.9 - OTHER SPECIFIED HEALTH STATUS Comment: 05/19/19 -Full code
[2019-05-19] MEDS: CIPROFLOXACIN HCL 250 MG TABLET PO SCH ×2 (12:55→23:05)
[2019-05-19] MEDS: 0.9 % SODIUM CHLORIDE 1000ML 1,000 ML IV PRN ×2 (13:04→23:04)
[2019-05-19] MEDS: DONEPEZIL HCL 5 MG TABLET PO SCH (23:05)
[2019-05-19] MEDS: ATORVASTATIN 20 MG TABLET PO SCH (23:05)
[2019-05-20] MEDS: LEVOTHYROXINE SODIUM 88 MCG TABLET PO SCH (06:21)
[2019-05-20 08:13] LABS: CREATININE 1.4 mg/dL (0.5-0.9)
[2019-05-20] MEDS: ASPIRIN 81 MG CHEWABLE TABLET PO SCH (09:36)
[2019-05-20] MEDS: VENLAFAXINE ER 75 MG CAPSULE PO SCH (09:36)
[2019-05-20] MEDS: VALSARTAN 80 MG TAB PO SCH (09:36)
[2019-05-20] MEDS: 0.9 % SODIUM CHLORIDE 1000ML 1,000 ML IV PRN (09:53)
[2019-05-20] MEDS: MEMANTINE 28 MG PO SCH (09:54)
--- NOTE | 2019-05-20 11:00 | Discharge Summary ---
Providers Discharge Summary Date: 05/20/19 Date of admission: 05/18/19 18:59 Attending physician: ROCÍO RAHMAN Primary care physician: RUBY PEREZ D.O. Physical Exam - Vital Signs Vital Signs: Vital Signs - Last 24 Hrs Temp Pulse Pulse Resp BP BP Pulse Ox 05/20/19 07:59 97.7 F 70 72 16 131/69 97 05/20/19 04:15 97.9 F 67 16 150/66 98 05/19/19 23:00 97.8 F 77 16 128/68 98 05/19/19 19:00 98.1 F 68 16 130/64 99 05/19/19 16:18 98.3 F 141/78 05/19/19 15:00 98.3 F 72 16 141/78 97 - General General Appearance: Alert, Cooperative, No acute distress Limitations: No limitations - Head Head exam: Atraumatic, Normocephalic - Eye Eye exam: Normal appearance, PERRL - ENT Throat exam: Normal inspection. negative: Tonsillar erythema, Tonsillar exudate - Neck Neck exam: Normal inspection, Full ROM. negative: Tenderness - Respiratory Respiratory exam: Normal lung sounds bilaterally. negative: Respiratory distress - Cardiovascular Cardiovascular Exam: Regular rate, Normal rhythm, Normal heart sounds. negative: Diastolic murmur, Systolic murmur - GI/Abdominal GI/Abdominal exam: Soft, Normal bowel sounds. negative: Tenderness - Extremities Extremities exam: Normal inspection, Full ROM, Normal capillary refill. negative: Tenderness - Back Back exam: Reports: Normal inspection - Neurological Neurological exam: Alert, CN II-XII intact, Normal gait. negative: Abnormal gait, Motor sensory deficit, Oriented X3 (The patient is oriented to name, bday, and place but not age, day or year. She is presently at her baseline per family.) - Psychiatric Psychiatric exam: Normal affect. negative: Agitated, Anxious, Depressed - Skin Skin exam: Dry, Intact, Warm Hospitalization - Hospitalization Admission Diagnosis: 1. Acute Renal Failure - Problem List/Discharge Diagnosis (1) KADEEM (acute kidney injury) Status: Acute Base Code: N17.9 - ACUTE KIDNEY FAILURE, UNSPECIFIED Comment: 05/20/19 -Improved -BUN 42, Creatinine 1.4, GFR 39 -Baseline Creatinine 1.0, GFR 58-60 -Discussed ensuring 64 oz. of H2O intake at home -Order given to have labwork drawn prior to PCP appointment on 05/23/19 (2) Dehydration Status: Acute Base Code: E86.0 - DEHYDRATION Comment: 05/20/19 -Has had decreased fluid and food intake x 5 weeks -BUN 94 --> 76 --> 42, Creatinine 3.2 --> 2.2 --> 1.4, GFR 15 --> 23 -->39 -Order for labwork given for pt to have drawn prior to her PCP appointment this Wednesday 05/23. (3) Dementia Status: Acute Base Code: F03.90 - UNSPECIFIED DEMENTIA WITHOUT BEHAVIORAL DISTURBANCE Comment: 05/20/19 -Continue home meds Aricept 10mg q. HS and Namenda 28mg daily -Pt at baseline mentation per family -Nursing to provide increased supervision for safety (bed alarm, close to nurses station, etc) (4) Urinary tract infection Status: Acute Base Code: N39.0 - URINARY TRACT INFECTION, SITE NOT SPECIFIED Comment: 05/20/19 -U/A in ED: +Nitrites and moderate leuks -C&S pending -Cipro 250mg PO BID x 12 more doses (to have a total of 7 days) (5) DVT prophylaxis Status: Acute Base Code: Z29.9 - ENCOUNTER FOR PROPHYLACTIC MEASURES, UNSPECIFIED Comment: 05/20/19 -High risk d/t age -Pt ambulatory, nursing to encourage ambulation -SCDs ordered while in bed -No lovenox @ this time d/t KADEEM (6) Full code status Status: Acute Base Code: Z78.9 - OTHER SPECIFIED HEALTH STATUS Comment: 05/20/19 -Full code - Hospitalization Course Disposition: Home, Self-Care Hospital Course: Maria Isabel Keith is a 73 y.o. F who was brought to the [facility] ED at the direction of her PCP after having some lab work done earlier in the week which indicated KADEEM. Pt has hx of generalized weakness and not eating or drinking x 5 weeks. Spouse reported a weight loss of approximately 14 labs. Hx of Dementia for which she takes Aricept and Namenda. Similar episode of not eating or drinking in July 2018. PMHx: HTN, Demenia, GERD, DM II, Graves dx, OA, Anxiety. PCP: Dr. Ruby Perez Psychiatrist: Dr. Cortés ED Course -Vitals: T 97.8, HR 79, BP 133/78, RR 20, SpO2 98% on RA -U/A: +Nitrites, Moderate Leuks. Started on Keflex in ED -EKG: No acute changes -K+ 5.1, BUN 94, Creat 3.2, GFR 15, Ca 10.5 05/19/19 1100 Vitals: T 98.2, HR 66, BP 121/68, RR 16, SpO2 97% on RA Pt sitting up in bed, alert and pleasant. Daughter, son and at bedside. Discussed improved kidney function, but not yet back to baseline. Discussed + UTI and medication allergies. Pt denied having an N/V/D, flank pain, pelvic pain or burning with urination. Pt's spouse stated that she saw her PCP 4 days ago and prior to that, had not seen her for approximately 5 weeks. Shortly after seeing her PCP, pt stopped eating and drinking very much. Pt is still able to feed self and do most of her ADLs. 05/20/19 1030 VSS. Pt sitting up in chair. At baseline for orientation. Family present. Pt reports that she feels well and is trying to drink more fluids. Discussed getting a container with 64 oz marked on it so that pt knows how much she has to drink daily. Daughter reports that pt already has a f/u with her PCP on Wednesday 05/23. Pt wants to d/c home. Discussed improved labs with pt and family but that they were not back to normal. Family and pt aware that she should avoid potassium rich foods and meal replacement drinks until seen by PCP. Pt denied flank pain, dysuria or incontinence. Procedures: Cardiology Procedures 05/18/19 16:15 EKG NOW 05/18/19 19:06 Senior Qa Engineer .Continuous EKG QDX2@0600 Abnormal Labs: Abnormal Lab Results 05/18/19 05/18/19 05/18/19 Range/Units 16:15 16:15 16:46 MPV 11.2 H (7.4-10.4) fl Sodium 134 L (136-145) mmol/L Potassium 5.1 H (3.4-4.5) mmol/L Chloride 94 L (98-107) mmol/L Carbon Dioxide 21.0 L (22-29) mmol/L Anion Gap 19.0 H (7-16) BUN 94 H (8-23) mg/dL Creatinine 3.2 H (0.5-0.9) mg/dL Calcium 10.5 H (8.8-10.2) mg/dL Urine Nitrite Positive H (NEGATIVE) Ur Leukocyte Esterase Moderate H (NEGATIVE) 05/19/19 05/20/19 Range/Units 05:55 07:30 MPV (7.4-10.4) fl Sodium (136-145) mmol/L Potassium 4.6 H 5.1 H (3.4-4.5) mmol/L Chloride 109 H (98-107) mmol/L Carbon Dioxide (22-29) mmol/L Anion Gap (7-16) BUN 76 H 42 H (8-23) mg/dL Creatinine 2.2 H 1.4 H (0.5-0.9) mg/dL Calcium (8.8-10.2) mg/dL Urine Nitrite (NEGATIVE) Ur Leukocyte Esterase (NEGATIVE) Condition at Discharge: (2) Stable Discharge Medications - Discharge Medications Prescriptions: Ciprofloxacin HCl [Cipro] 250 mg PO Q12H #12 tablet Home Medications: Ambulatory Orders Alprazolam 0.25 mg PO BID PRN 12/29/15 [Last Taken 07/30/18] Aspirin Chewable 81 mg PO DAILY 12/29/15 [Last Taken 07/30/18] Atorvastatin Calcium [Lipitor] 40 mg PO DAILY 12/29/15 [Last Taken 07/30/18] Levothyroxine Sodium [Synthroid] 88 mcg PO DAILY 12/29/15 [Last Taken 07/30/18] Ascorbic Acid [Vitamin C] 500 mg PO DAILY 01/08/17 [Last Taken 07/30/18] Cholecalciferol (Vitamin D3) [Vitamin D3] 2,000 unit PO DAILY 01/08/17 [Last Taken 07/30/18] Donepezil HCl [Aricept] 10 mg PO QHS 01/08/17 [Last Taken 07/30/18] Venlafaxine HCl [Effexor] 75 mg PO DAILY 01/08/17 [Last Taken 07/30/18] Memantine HCl [Memantine HCl ER] 28 mg PO DAILY 07/30/18 [Last Taken 07/30/18] Valsartan 160 mg PO DAILY 05/18/19 [Last Taken Unknown] Acetaminophen [Tylenol 325Mg] 650 mg PO Q6H PRN tablet 05/20/19 [Last Taken Unknown] Ciprofloxacin HCl [Cipro] 250 mg PO Q12H #12 tablet 05/20/19 [Last Taken Unknown] Discharge Plan - Discharge Instructions Activity at Discharge: Increase Activity as Tolerated Instructions: Acute Kidney Injury (DC) Additional Instructions: Have labs drawn tomorrow. Drink lots of water, at least 64 fluid ounces daily. If getting worse return to the ED Avoid foods containing potassium Use a walker when up Resume home meds. Cipro twice daily starting today. Quality Measures - Quality Measures Quality Measures: Advance Directives, Documentation of Current Medications in Medical Record, Elder Maltreatment Screen and Follow-Up Plan, Screening for High Blood Pressure and F/U Documented - Current Medications Quality Measure: Measure #130: Documentation of Current Medications Documentation of Current Medications: <Current Medications Documented/Reviewed> [G8427] - Blood Pressure Screening Quality Measure: Screening for High Blood Pressure and Follow-Up Documented Does Patient Have Any of the Following: Active Dx of HTN Blood Pressure Classification: Hypertensive Reading Systolic Measurement: 141 Diastolic Measurement: 78 Screening for High Blood Pressure: Patient Exclusion, Hx of HTN [G9744] - Advance Directives Quality Measure: Measure #47: Care Plan Advance Directives Established: No Advance Directives Information Provided To Patient: Already Provided Advance Directives on File: No Living Will: No Power of Field Marketing Coordinator: No Advance Care Planning: <Care Plan/Decision Maker Documented; Discussed & Documented> [[id number]] - Elder Abuse Suspicion Index Screening: Elder Abuse Suspicion Index Screening Rely on people for bathing, dressing, shopping, banking, etc: Yes Prevented from getting food, clothes, medication, etc: No Made to feel shamed or threatened by someone: No Forced to sign papers or use money against will: No Feel afraid, touched in ways not wanted or hurt physically: No Poor eye contact, withdrawn, malnourished, cuts or bruises: No Screening Result: Negative result EASI Reference Information: Reggie RODRIGUEZ, Radha Lara, Rohit D, Erick Murillo.Development and validation of a tool to assist physicians identification of elder abuse: The Elder Abuse Suspicion Index (EASI ). Journal of Elder Abuse and Neglect, 2008; 20 (3): 276-300. - Elder Maltreatment Screen Quality Measures: Elder Maltreatment Screen and Follow-Up Plan Elder Maltreatment Screen: <Negative, No Follow-Up Plan Required> [G4934]
== END 2019-05-20 11:20 | disposition home or self-care (01) | DRG 683 ==
LOC: ER 15:55 → MEDSURG 18:59
PROVIDERS: ADMIT Internal Medicine; ATTEND Internal Medicine
DX: N17.9 Acute kidney failure, unspecified (principal); N39.0 Urinary tract infection, site not specified; R53.1 Weakness; I10 Essential (primary) hypertension; E78.00 Pure hypercholesterolemia, unspecified; F03.90 Unspecified dementia, unspecified severity, without behavioral disturbance, psychotic disturbance, mood disturbance, and anxiety; K21.9 Gastro-esophageal reflux disease without esophagitis; E11.9 Type 2 diabetes mellitus without complications; E05.00 Thyrotoxicosis with diffuse goiter without thyrotoxic crisis or storm; M19.90 Unspecified osteoarthritis, unspecified site
CPT/HCPCS: 80048; 80053; 81001; 85025; 93005; 93010; 96360; 96361; 99223; 99239; 99285; J7030

== ENCOUNTER 2019-06-28 08:55 | Day surgery (SDC) | payer MEDICARE ==
[2019-06-28] MEDS ORDERED: LIDOCAINE 2% MDV (20MG/ML) 20ML VIAL IV ONE (08:56)
[2019-06-28] MEDS ORDERED: PROPOFOL 10 MG/ML VIAL IV ONE (08:56)
--- NOTE | 2019-06-29 12:50 | Operative Note ---
OPERATION: COLONOSCOPY with cold forceps and cold snare polypectomies. PREOPERATIVE DIAGNOSIS: Hemoccult-positive stool. POSTOPERATIVE DIAGNOSIS: Colon polyps. PREPARATION QUALITY: Fair. ESTIMATED BLOOD LOSS: Minimum. SPECIMENS: Cecal polyp, ascending colon polyp, and transverse colon polyp. COMPLICATIONS: None apparent. PROCEDURE: After informed consent was obtained from the patient, she was placed in the left lateral decubitus position in the endoscopy suite, sedated and monitored by the department of anesthesia. Digital rectal examination was unremarkable. A well-lubricated [id number] colonoscope was inserted into the rectum and advanced to the cecum. Preparation quality was fair. Numerous areas were lavaged and fluid and stool removed. The cecum revealed a diminutive polyp removed with a cold forceps. The ascending colon also revealed a diminutive polyp removed with a cold forceps. The cecum and ascending colon were otherwise unremarkable. The transverse colon did reveal a 5 mm sessile polyp removed with a cold snare and was retrieved. Minimal bleeding was noted. The remainder of the transverse colon, descending colon, sigmoid colon, and rectum were otherwise unremarkable. Forward and J-turn views of the rectum and anorectum were unrevealing other than some stool obscuring some of the view. Despite rinsing, there was still suboptimal visualization. The endoscope was straightened, the rectal ampulla deflated, and the endoscope was removed. RECOMMENDATIONS: I would recommend the patient resume her medications and diet. She should undergo repeat exam in 3 years should her health allow. As always, thank you for allowing me to participate in the healthcare of your patients. EMILY
== END 2019-06-28 11:10 | disposition home or self-care (01) ==
LOC: HOP 08:55
PROVIDERS: ATTEND Internal Medicine Gastroenterology
DX: R19.5 Other fecal abnormalities (principal); D12.2 Benign neoplasm of ascending colon; D12.0 Benign neoplasm of cecum; D12.3 Benign neoplasm of transverse colon; Z91.19 Patient's noncompliance with other medical treatment and regimen; I10 Essential (primary) hypertension; E78.00 Pure hypercholesterolemia, unspecified; E03.9 Hypothyroidism, unspecified; G30.9 Alzheimer's disease, unspecified